=== PATIENT | female | born 1990 | race Caucasian/White ===

== ENCOUNTER 2016-10-24 01:00 | Emergency (ER) | payer BC ==
[~2016-10-24] VITALS: Ht 172.7 cm; Wt 65.6 kg
[~2016-10-24 01:00] MED LIST: NORG1TAB26 PO; VITAMIN C CHEWABLE PO; VITAMIN D PO; [UNRECOGNIZED DRUG - OTHER] PO
[2016-10-24 01:03] VITALS: TEMP 36.9; Ht 172.7 cm; Wt 65.6 kg
[2016-10-24 01:11] VITALS: O2SAT 98
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
[2016-10-24 02:25] VITALS: BP 96/51; PULSE 76; O2SAT 99
--- NOTE | 2016-10-24 08:34 | DIAGNOSTIC IMAGING REPORT ---
CHEST 2 VIEWS ROUTINE CLINICAL HISTORY: Chest trauma. Pain. Dyspnea. COMPARISON STUDY: No previous studies for comparison. FINDINGS: There is no pneumothorax or pleural effusion. Cardiac size is normal. Mediastinal contours are normal. No airspace opacities are identified. A nodular density within left lower lung may reflect a calcified nodule. IMPRESSION: No acute cardiopulmonary findings. Electronically signed by: Blue Quintana M.D. 10/24/2016 8:32 AM Dictated Date/Time: 10/24/2016 8:31 AM
--- NOTE | 2016-10-24 08:35 | DIAGNOSTIC IMAGING REPORT ---
STERNUM MIN 2 VIEWS CLINICAL HISTORY: Chest trauma. COMPARISON STUDY: No previous studies for comparison. FINDINGS: No sternal fracture is identified by radiography. Evaluation is somewhat compromised due to overlying ribs. IMPRESSION: No sternal fracture identified by radiography. Electronically signed by: Blue Quintana M.D. 10/24/2016 8:34 AM Dictated Date/Time: 10/24/2016 8:33 AM
== END 2016-10-24 02:26 | disposition home or self-care (01) ==
LOC: C.EDB 01:01
DX: S29.9XXA Unspecified injury of thorax, initial encounter (principal); W22.8XXA Striking against or struck by other objects, initial encounter; Y92.89 Other specified places as the place of occurrence of the external cause; K80.20 Calculus of gallbladder without cholecystitis without obstruction; Z91.09 Other allergy status, other than to drugs and biological substances; Z80.9 Family history of malignant neoplasm, unspecified; Z83.3 Family history of diabetes mellitus; Z83.79 Family history of other diseases of the digestive system; Z82.49 Family history of ischemic heart disease and other diseases of the circulatory system; Z84.1 Family history of disorders of kidney and ureter; Z82.0 Family history of epilepsy and other diseases of the nervous system

== ENCOUNTER 2017-05-20 14:55 | Emergency (ER) | payer OTHER, BC ==
[~2017-05-20] VITALS: Ht 167.6 cm; Wt 63.8 kg
[2017-05-20 15:09] VITALS: BP 118/77; PULSE 74; TEMP 37.2; O2SAT 100; Ht 167.6 cm; Wt 63.8 kg
--- NOTE | 2017-05-20 16:05 | DIAGNOSTIC IMAGING REPORT ---
HEAD WITHOUT CONTRAST (CT) CLINICAL HISTORY: 26 years-old Female with HEAD INJURY. Acute nausea with recent head trauma TECHNIQUE: Multiple axial CT images of the head were obtained without contrast. A dose lowering technique was utilized adhering to the principles of ALARA. CT DOSE: 537.48 mGy.cm COMPARISON: None. FINDINGS: No acute intracranial hemorrhage, midline shift, intracranial mass, hydrocephalus, territorial ischemia or abnormal extra-axial collection. The calvarium is intact. The paranasal sinuses, mastoid air cells, and middle ear cavities are clear. IMPRESSION: No acute intracranial abnormality. The above report was generated using voice recognition software. It may contain grammatical, syntax or spelling errors. Electronically signed by: Bertram Ramos M.D. 05/20/2017 4:03 PM Dictated Date/Time: 05/20/2017 4:01 PM
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
== END 2017-05-20 16:39 | disposition home or self-care (01) ==
LOC: C.EDB 14:56 → C.EDD 16:39
DX: S09.90XA Unspecified injury of head, initial encounter (principal); S06.0X0A Concussion without loss of consciousness, initial encounter; Y99.0 Civilian activity done for income or pay; W22.8XXA Striking against or struck by other objects, initial encounter